=== PATIENT | male | born 1960 | race Caucasian/White ===

== ENCOUNTER 2023-02-27 13:58 | Outpatient (CLI) | payer BC ==
[~2023-02-27 13:58] MED LIST: Iopamidol 370 76% 100 ML VIAL ONE
== END 2023-02-27 13:59 | disposition home or self-care (01) ==
LOC: BICCT 13:58
PROVIDERS: ATTEND Family Medicine
DX: E27.8 Other specified disorders of adrenal gland (principal); N20.0 Calculus of kidney; D35.01 Benign neoplasm of right adrenal gland; K59.00 Constipation, unspecified
CPT/HCPCS: 74170; 82565; Q9967